=== PATIENT | female | born 1950 | race Caucasian/White ===

== ENCOUNTER 2018-10-05 23:32 | Inpatient (IN) ==
[2018-10-06] MEDS ORDERED: Naloxone 0.4 MG/ML INJ IVP PRN (01:34)
[2018-10-06] MEDS ORDERED: 0.9 % Sodium Chloride 1,000 ML IVC SCH (01:45)
[2018-10-06] MEDS ORDERED: OXYCODONE Oral CONC 10 MG/0.5 ML ORAL.SYG SL ONE (03:38)
[2018-10-06] MEDS: Nystatin POWDER 30 GM BOTTLE TP SCH ×4 (05:54→20:17)
[2018-10-06 07:22] LABS: Basophils % 0.4 %; Eosinophils # 0.2 K/mcL (0.0-0.6); Eosinophils % 2.6 %; Hematocrit 40.6 % (35.3-44.9); Hemoglobin 13.7 g/dL (11.5-15.4); Immature Granulocytes % 0.6 % (0-4); Lymphocytes # 2.4 K/mcL (0.6-4.6); Lymphocytes % 30.4 %; Mean Corpuscular HGB Conc 33.7 g/dL (31.6-35.5); Mean Corpuscular Hemoglobin 30.7 pg (28.0-33.3); Mean Platelet Volume 9.6 fL (9.4-12.4); Monocytes # 0.5 K/mcL (0.0-1.3); Monocytes % 6.6 %; Neutrophils # 4.8 K/mcL (1.6-8.9); Platelet Count 190 K/mcL (140-400); Red Blood Count 4.46 M/mcL (3.82-4.97); Red Cell Distribution Width 13.6 % (11.5-14.5); Segmented Neutrophils % 59.4 %
[2018-10-06 07:41] LABS: Albumin 3.8 g/dL (3.5-5.7); Albumin/Globulin Ratio 1.5 (1.1-2.2); Bilirubin,Total 0.6 mg/dL (0.3-1.0); Globulin 2.5 g/dL (2.4-3.5); Magnesium 1.7 mg/dL (1.6-2.6); Total Protein 6.3 g/dL (6.4-8.9)
--- NOTE | 2018-10-06 08:25 | Internal Med History&Physical ---
Date of Encounter: 10/06/18 Time of Encounter: 06:00 Internal Medicine - H&P: HPI Chief complaint: Right tibial plateau fracture History of present illness: Ms. Live is a 68 year old female with past medical history of COPD, GERD, hypertension, hyperlipidemia, renal disease and multiple sclerosis who presented to [facility] after a mechanical fall. Patient was attempting to get out of her walker seated device to answer the doorbell rang when she apparently got her feet tangled and fell forward striking her right knee. Since then she has been unable to bear weight. CT scan of the right knee performed at [place] showed acute insufficiency fracture of the posterior lateral tibial plateau with some impaction of the most posterior aspect of the tibial plateau measuring 3 mm. Case was discussed with Dr. Villareal we will see the patient after transfer. On my assessment patient was hemodynamically stable. She was complaining of right knee pain and requesting pain medication. Labs are notable for a mild elevation in creatinine which appears to be chronic. Past Med Surg Social Fam HX - Past Medical History Medical history: COPD, GERD, hyperlipidemia, hypertension, osteoporosis, renal disease, thyroid disease, other Additional medical history: MS Psychiatric history: anxiety, depression - Past Surgical History Surgical History: hysterectomy, other Additional surgical history: throat surgery, lumpectomy on R Breast - Social History Smoking Status: Former smoker Smokeless Tobacco Status: No Alcohol use: none Drug use: none - Family History Mother Hx Family Cancer: Yes (- Breast CA) Father Hx Family Cancer: Yes (Skin CA) Internal Medicine - H&P: Meds Amlodipine [Norvasc] 5 mg PO BID 04/23/15 [History] Aspirin 81 mg PO DAILY 04/23/15 [History] Buspirone [Buspar] 15 mg PO TID 04/23/15 [History] Cholecalciferol (Vitamin D3) [Vitamin D3] 1,000 unit PO DAILY 04/23/15 [History] CloNIDine HCl 0.1 mg PO TID 04/23/15 [History] Cyanocobalamin (B-12) [Vitamin B12] 1,000 mcg IM PRN PRN 04/23/15 [History] Ezetimibe [Zetia] 10 mg PO DAILY 04/23/15 [History] LORazepam [Ativan] 0.5 mg PO TID 04/23/15 [History] Loratadine [Claritin] 10 mg PO DAILY 04/23/15 [History] Metoprolol [Lopressor] 50 mg PO BID 04/23/15 [History] Nitroglycerin 0.4 mg SL Q5MIN 04/23/15 [History] Omeprazole [PriLOSEC] 20 mg PO DAILY 04/23/15 [History] Simvastatin [Zocor] 0.5 tab PO HS 04/23/15 [History] Albuterol Sulfate [Proair Hfa] 2 puff IH Q4H PRN 07/20/18 [History] Levothyroxine [Synthroid] 50 mcg PO 0630 07/20/18 [History] Acetaminophen [Tylenol] 650 mg PO Q6HR PRN tablet 07/23/18 [Rx] Lisinopril [Zestril] 2.5 mg PO DAILY 07/23/18 [History] [place]-3/Dha/Epa/Fish Oil [Fish Oil 1,000 mg Softgel] 1 each PO BID 07/23/18 [History] Allergy/AdvReac Type Severity Reaction Status Date / Time Benzoate Analogues Allergy See Verified 10/05/18 21:38 Comments chondroitin sulfate A Allergy See Verified 10/05/18 21:38 [From TripleFlex] Comments Diphenoxylate Allergy See Verified 10/05/18 21:38 Comments glatiramer (copolymer 1) Allergy See Verified 10/05/18 21:38 [From Copaxone] Comments glucosamine [From TripleFlex] Allergy See Verified 10/05/18 21:38 Comments levofloxacin Allergy See Verified 10/05/18 21:38 Comments methylsulfonylmethane Allergy See Verified 10/05/18 21:38 [From TripleFlex] Comments metronidazole Allergy See Verified 10/05/18 21:38 Comments nitrofurantoin Allergy See Verified 10/05/18 21:38 Comments ondansetron Allergy See Verified 10/05/18 21:38 Comments paricalcitol [From [place]] Allergy See Verified 10/05/18 21:38 Comments Sulfa (Sulfonamide Allergy Nausea Verified 10/05/18 21:38 Antibiotics) trazodone Allergy See Verified 10/05/18 21:38 Comments acetaminophen [From [place]] AdvReac Vomiting Verified 10/05/18 23:13 cinacalcet [From [place]] AdvReac See Verified 10/05/18 21:38 Comments codeine AdvReac Nausea Verified 10/05/18 21:38 hydrocodone [From [place]] AdvReac Vomiting Verified 10/05/18 23:13 NSAIDS (Non-Steroidal AdvReac Gastrointestinal Verified 10/05/18 21:38 Anti-Inflamma Upset All Systems PM: A 10-system review of systems was performed and is negative for pertinent findings except as documented above in the HPI. - Constitutional Constitutional: no chills, no fever(s), no night sweats - EENT Eyes: no change in vision, no discharge, no pain, no photophobia Ears: no ear discharge, no ear pain, no tinnitus Nose, mouth and throat: no dysphagia, no nasal discharge, no neck pain, no sore throat - Cardiovascular Cardiovascular ROS IM: no chest pain, no diaphoresis, no dyspnea, no lightheadedness, no palpitations, no syncope - Respiratory Respiratory: no cough, no dyspnea, no wheezing, no excessive phlegm production - Gastrointestinal Gastrointestinal: no abdominal pain, no diarrhea, no hematemesis, no hematochezia, no melena, no nausea, no vomiting - Genitourinary Genitourinary: no change in urinary stream, no dysuria, no flank pain, no hematuria - Musculoskeletal Musculoskeletal ROS IM: no numbness, no tingling - Integumentary Integumentary IM: no rash, no unusual bruising - Neurological Neurological ROS: no confusion, no convulsions, no focal weakness, no numbness, no tingling, no tremor(s) - Hematologic/Lymphatic Hematologic/Lymphatic: no easy bruising - Constitutional Vitals: Temp Pulse Resp BP Pulse Ox 97.6 F 92 14 151/91 95 10/06/18 08:12 10/06/18 08:12 10/06/18 08:12 10/06/18 08:12 10/06/18 08:12 Exam: General: Alert and oriented 3 Skin:Normal color, no rash, no lesions. HEENT:EOM, pupils equal, round and reactive. Cardiovascular:Normal S1 & S2, no rubs, murmurs or gallops. No JVD. Pulse regular. Lungs:Normal breath sounds, no wheezes or crackles. Abdomen:Soft, non-tender, no rigidity. Extremities:No deformity, no edema or tenderness, right knee tender to palpation below the patella. Pulses intact Neurological:Normal cognition and motor skills. Pulses:Carotid and radial pulses normal +2. Rest of the physical exam is non contributory Internal Med - H&P Results - Labs CBC & Chem 7: 10/06/18 06:26 10/06/18 06:26 Labs: Short CBC 10/06/18 Range/Units 06:26 WBC 8.0 (4.3-11.1) K/mcL Hgb 13.7 (11.5-15.4) g/dL Hct 40.6 (35.3-44.9) % Plt Count 190 (140-400) K/mcL Neutrophils # 4.8 (1.6-8.9) K/mcL BMP 10/06/18 06:26 Sodium 132 L Potassium 4.0 Chloride 99 Carbon Dioxide 24 BUN 21 Creatinine 1.32 H Glucose 274 H Calcium 10.0 Liver Function 10/06/18 Range/Units 06:26 Total Bilirubin 0.6 (0.3-1.0) mg/dL AST 17 (13-39) Units/L ALT 22 (7-52) Units/L Alkaline Phosphatase 110 H (34-104) Units/L Albumin 3.8 (3.5-5.7) g/dL - Assessment and plan (1) Tibial plateau fracture Current Visit: No Status: Acute Assessment and plan: Right tibial plateau fracture status post mechanical fall. Case was discussed with Dr. VILLAREAL this morning. He reports that he may perform the operation tomorrow but will discuss it with the day team and give them his final answer. Patient reports a history of coronary artery disease in addition to COPD but denies any chest pain at this time or respiratory difficulty. She appears to be sedentary ambulating with her walker due to history of frequent falls which she states is a result of her MS. -Patient will need preoperative clearance Qualifiers: Encounter type: initial encounter Qualified Code(s): S82.141A - Displaced bicondylar fracture of right tibia, initial encounter for closed fracture (2) Coronary artery disease Current Visit: Yes Status: Acute Assessment and plan: History of coronary artery disease. Currently stable -Continue medical management with home medications Qualifiers: Associated angina: angina presence unspecified Qualified Code(s): I25.10 - Atherosclerotic heart disease of [place] coronary artery without angina pectoris (3) COPD (chronic obstructive pulmonary disease) Current Visit: Yes Status: Acute Assessment and plan: Stable. No evidence of an acute exacerbation. -Continue home inhalers Qualifiers: Emphysema type: unspecified Qualified Code(s): J43.9 - Emphysema, unspecified (4) Hyponatremia Current Visit: No Status: Acute Assessment and plan: Mild hyponatremia of 132. - Continue gentle hydration with normal saline (5) DVT prophylaxis Current Visit: Yes Status: Acute Assessment and plan: Pneumatic compression devices - Time Spent With Patient Total time spent is greater than 50% in coordination of care (as documented) at patient's floor/unit and/or counseling patient:
[2018-10-06] MEDS ORDERED: Acetaminophen 325 MG TABLET PO PRN (08:35)
[2018-10-06] MEDS ORDERED: NON-FORMULARY MEDICATION 1 EACH EACH (Cyanocobalamin (B-12) 1,000 MCG) IM PRN (08:35)
[2018-10-06] MEDS: Nitroglycerin 0.4 MG TAB.SUBL SL SCH (10:15)
[2018-10-06] MEDS: Cholecalciferol (D-3) 1,000 UNIT TABLET PO SCH (10:21)
[2018-10-06] MEDS: *HR* LORazepam 0.5 MG TABLET PO SCH ×3 (10:21→20:16)
[2018-10-06] MEDS: Loratadine 10 MG TABLET PO SCH (10:21)
[2018-10-06] MEDS: Aspirin 81 MG TAB.CHEW PO SCH (10:21)
[2018-10-06] MEDS: cloNIDine HCl 0.1 MG TABLET PO SCH ×3 (10:22→20:17)
[2018-10-06] MEDS: OXYCODONE Oral CONC 10 MG/0.5 ML ORAL.SYG SL PRN ×2 (10:22→20:42)
[2018-10-06] MEDS: amLODIPine 5 MG TABLET PO SCH ×2 (10:22→20:16)
[2018-10-06] MEDS: (Ezetimibe [Zetia] 10 MG) PO SCH (10:35)
[2018-10-06] MEDS: (Omega-3/Dha/Epa/Fish Oil [Fish Oil 1,000 Mg Softgel]) PO SCH ×2 (10:35→20:17)
--- NOTE | 2018-10-06 10:56 | Event Note ---
Date of Encounter: 10/06/18 Time of Encounter: 10:56
--- NOTE | 2018-10-06 15:12 | Orthopedic Consult Note ---
Date of Encounter: 10/06/18 Time of Encounter: 15:05 History of Present Illness Chief complaint: Right knee pain HPI: Ms. Live is a 68 year old female with multiple medical problems who sustained a mechanical fall at home and injured her right knee. She was unable to weight- bear on the extremity. She was seen a [facility] where a knee x-ray followed by CT scan revealed evidence of a lateral tibial plateau fracture. The patient was unable to ambulate and was therefore transferred to [facility] for further evaluation and management of the injury. Patient denies any neurovascular complaints. Patient has had some episodes of pain in the past. I reviewed the patient's completed history and physical examination as well as the completed medical record. The patient's medical history is very significant for COPD, GERD, hyperlipidemia, hypertension, osteoporosis, chronic kidney disease, thyroid disease as well as multiple sclerosis. Orthopedic examination reveals an obese white female (BMI 43.2) in minor distress while lying in the hospital bed. Examination of the right lower extremity shows no acute ecchymosis. There is minimal edema or swelling about the knee. Tenderness is palpated along the lateral joint line as well as the medial joint line. No patellofemoral pain is noted. Distal neurosensory exam is intact. Motion is extremely limited. X-rays of the knee are nonweightbearing and do reveal some narrowing of the medial joint line. Diminished bone density is noted. There is a depressed posterolateral tibial plateau fracture. No evidence of distal involvement. Medial side appears unremarkable. CT scan was reviewed. This reveals a impacted posterolateral tibial plateau fracture with impaction difference of about 3 mm. This is a unicondylar fracture. Impression: Right lateral tibial plateau fracture, minimal displacement. Recommendation: In light of the minimal displacement as well as multiple other secondary factors including obesity, diminished bone density, COPD and multiple sclerosis I recommend nonoperative management of this fracture. The patient understands that whether the fractures treated surgically or not operative, she will not be weightbearing on the extremity for some period of time and that posttraumatic arthritis is and anticipated ultimate outcome regardless of treatment. I discussed that surgery would be designed to attempt to elevate the depressed fragment and then stabilize it. I do not think there is a significant amount to gain in light of the risks of potential surgery in this particular patient and with this fracture. Patient understands and agrees with care as outlined. We will consult physical and occupational therapy and manager social work for discharge planning. Thank you for allowing me to see and care for Ms. Live. Sincerely, Morgan Garcia,DO Past Med Surg Social Fam HX - Past Medical History Medical history: COPD, GERD, hyperlipidemia, hypertension, osteoporosis, renal disease, thyroid disease, other Additional medical history: MS Psychiatric history: anxiety, depression - Past Surgical History Surgical History: hysterectomy, other Additional surgical history: throat surgery, lumpectomy on R Breast - Social History Smoking Status: Former smoker Smokeless Tobacco Status: No Alcohol use: none Drug use: none - Family History Mother Hx Family Cancer: Yes (- Breast CA) Father Hx Family Cancer: Yes (Skin CA) Medications and Allergies Amlodipine [Norvasc] 5 mg PO BID 04/23/15 [History] Aspirin 81 mg PO DAILY 04/23/15 [History] Buspirone [Buspar] 15 mg PO TID 04/23/15 [History] Cholecalciferol (Vitamin D3) [Vitamin D3] 1,000 unit PO DAILY 04/23/15 [History] CloNIDine HCl 0.1 mg PO TID 04/23/15 [History] Cyanocobalamin (B-12) [Vitamin B12] 1,000 mcg IM PRN PRN 04/23/15 [History] Ezetimibe [Zetia] 10 mg PO DAILY 04/23/15 [History] LORazepam [Ativan] 0.5 mg PO TID 04/23/15 [History] Loratadine [Claritin] 10 mg PO DAILY 04/23/15 [History] Metoprolol [Lopressor] 50 mg PO BID 04/23/15 [History] Nitroglycerin 0.4 mg SL Q5MIN 04/23/15 [History] Omeprazole [PriLOSEC] 20 mg PO DAILY 04/23/15 [History] Simvastatin [Zocor] 0.5 tab PO HS 04/23/15 [History] Albuterol Sulfate [Proair Hfa] 2 puff IH Q4H PRN 07/20/18 [History] Levothyroxine [Synthroid] 50 mcg PO 0630 07/20/18 [History] Acetaminophen [Tylenol] 650 mg PO Q6HR PRN tablet 07/23/18 [Rx] Lisinopril [Zestril] 2.5 mg PO DAILY 07/23/18 [History] [place]-3/Dha/Epa/Fish Oil [Fish Oil 1,000 mg Softgel] 1 each PO BID 07/23/18 [History] Allergy/AdvReac Type Severity Reaction Status Date / Time Benzoate Analogues Allergy See Verified 10/05/18 21:38 Comments chondroitin sulfate A Allergy See Verified 10/05/18 21:38 [From TripleFlex] Comments Diphenoxylate Allergy See Verified 10/05/18 21:38 Comments glatiramer (copolymer 1) Allergy See Verified 10/05/18 21:38 [From Copaxone] Comments glucosamine [From TripleFlex] Allergy See Verified 10/05/18 21:38 Comments levofloxacin Allergy See Verified 10/05/18 21:38 Comments methylsulfonylmethane Allergy See Verified 10/05/18 21:38 [From TripleFlex] Comments metronidazole Allergy See Verified 10/05/18 21:38 Comments nitrofurantoin Allergy See Verified 10/05/18 21:38 Comments ondansetron Allergy See Verified 10/05/18 21:38 Comments paricalcitol [From Zemplar] Allergy See Verified 10/05/18 21:38 Comments Sulfa (Sulfonamide Allergy Nausea Verified 10/05/18 21:38 Antibiotics) trazodone Allergy See Verified 10/05/18 21:38 Comments acetaminophen [From [place]] AdvReac Vomiting Verified 10/05/18 23:13 cinacalcet [From Sensipar] AdvReac See Verified 10/05/18 21:38 Comments codeine AdvReac Nausea Verified 10/05/18 21:38 hydrocodone [From [place]] AdvReac Vomiting Verified 10/05/18 23:13 NSAIDS (Non-Steroidal AdvReac Gastrointestinal Verified 10/05/18 21:38 Anti-Inflamma Upset All Systems Reviewed: The remainder of the systems were reviewed and are negative Physical Exam - Constitutional Vitals: Temp Pulse Resp BP Pulse Ox 97.6 F 119 14 151/83 93 10/06/18 11:04 10/06/18 11:04 10/06/18 11:04 10/06/18 11:04 10/06/18 11:04 Results - Labs Result Diagrams: 10/06/18 06:26 10/06/18 06:26 Labs: Abnormal lab results Sodium 132 mEq/L (136-145) L 10/06/18 06:26 Creatinine 1.32 mg/dL (0.60-1.20) H 10/06/18 06:26 Est GFR ( Amer) 48 (> 60) L 10/06/18 06:26 Est GFR (Non-Af Amer) 40 (> 60) L 10/06/18 06:26 Glucose 274 mg/dL (70-105) H 10/06/18 06:26 Alkaline Phosphatase 110 Units/L (34-104) H 10/06/18 06:26 Serum Total Protein 6.3 g/dL (6.4-8.9) L 10/06/18 06:26 H & H 10/06/18 Range/Units 06:26 Hgb 13.7 (11.5-15.4) g/dL Hct 40.6 (35.3-44.9) % All other labs normal. - Diagnostic results Knee x-ray: image reviewed Knee CT: image reviewed Consult Discharge Plan - Plan Referrals: NONE,PCP [Primary Care Provider] -
[2018-10-07] MEDS: OXYCODONE Oral CONC 10 MG/0.5 ML ORAL.SYG SL PRN ×3 (05:13→22:28)
[2018-10-07] MEDS: Loratadine 10 MG TABLET PO SCH (08:59)
[2018-10-07] MEDS: *HR* LORazepam 0.5 MG TABLET PO SCH ×3 (08:59→20:52)
[2018-10-07] MEDS: amLODIPine 5 MG TABLET PO SCH ×2 (09:00→20:52)
[2018-10-07] MEDS: Cholecalciferol (D-3) 1,000 UNIT TABLET PO SCH (09:00)
[2018-10-07] MEDS: Aspirin 81 MG TAB.CHEW PO SCH (09:00)
[2018-10-07] MEDS: cloNIDine HCl 0.1 MG TABLET PO SCH ×3 (09:00→20:52)
[2018-10-07] MEDS: (Ezetimibe [Zetia] 10 MG) PO SCH (09:01)
[2018-10-07] MEDS: Nystatin POWDER 30 GM BOTTLE TP SCH ×3 (09:08→20:57)
[2018-10-07] MEDS: Nitroglycerin 0.4 MG TAB.SUBL SL SCH (11:49)
[2018-10-07] MEDS: (Omega-3/Dha/Epa/Fish Oil [Fish Oil 1,000 Mg Softgel]) PO SCH ×2 (11:49→20:52)
--- NOTE | 2018-10-08 00:11 | Internal Med Progress Note ---
Hospitalist Progress Note - Encounter Date of Encounter: 10/07/18 Time of Encounter: 12:09 - Subjective Interval History: No complaints, no acute events. - Exam Vitals: Temp Pulse Resp BP Pulse Ox 97.6 F 72 18 104/66 93 10/07/18 23:13 10/07/18 23:13 10/07/18 23:13 10/07/18 23:13 10/07/18 23:13 Exam: General: Alert and oriented 3, very anxious appearing Skin:Normal color, no rash, no lesions. HEENT:EOM, pupils equal, round and reactive. Cardiovascular:Normal S1 & S2, no rubs, murmurs or gallops. No JVD. Pulse regular. Lungs:Normal breath sounds, no wheezes or crackles. Abdomen:Soft, non-tender, no rigidity. Extremities:No deformity, no edema or tenderness, right knee tender to palpation below the patella. Pulses intact Neurological:Normal cognition and motor skills. Pulses:Carotid and radial pulses normal +2. - Assessment and Plan (1) Tibial plateau fracture Current Visit: No Status: Acute Assessment and Plan: Right tibial plateau fracture status post mechanical fall. Case was discussed with Dr. VILLAREAL this morning. He reports that he may perform the operation tomorrow but will discuss it with the day team and give them his final answer. Patient reports a history of coronary artery disease in addition to COPD but denies any chest pain at this time or respiratory difficulty. She appears to be sedentary ambulating with her walker due to history of frequent falls which she states is a result of her MS. 2/3/: Ortho farrah: non-operative. Await PT/OT recs. (2) Hyponatremia Current Visit: No Status: Acute Assessment and Plan: Mild hyponatremia of 132. Pt was given gentle hydration with normal saline. (3) Coronary artery disease Current Visit: Yes Status: Acute (4) COPD (chronic obstructive pulmonary disease) Current Visit: Yes Status: Acute (5) DVT prophylaxis Current Visit: Yes Status: Acute - Time Spent with Patient Total time spent is greater than 50% in coordination of care (as documented) at patient's floor/unit and/or counseling patient: Internal Medicine: Result - Labs CBC & Chem 7: 10/06/18 06:26 10/06/18 06:26 Consult Discharge Plan - Plan Referrals: NONE,PCP [Primary Care Provider] - (1) Tibial plateau fracture Qualifiers: Encounter type: initial encounter Qualified Code(s): S82.141A - Displaced bicondylar fracture of right tibia, initial encounter for closed fracture (3) Coronary artery disease Qualifiers: Associated angina: angina presence unspecified Qualified Code(s): I25.10 - Atherosclerotic heart disease of [place] coronary artery without angina pectoris (4) COPD (chronic obstructive pulmonary disease) Qualifiers: Emphysema type: unspecified Qualified Code(s): J43.9 - Emphysema, unspecified
--- NOTE | 2018-10-08 00:14 | Internal Med Progress Note ---
Hospitalist Progress Note - Encounter Date of Encounter: 10/07/18 Time of Encounter: 13:21 - Subjective Interval History: No complaints, no acute events. Pt very anxious about health conditions. - Exam Vitals: Temp Pulse Resp BP Pulse Ox 97.6 F 72 18 104/66 93 10/07/18 23:13 10/07/18 23:13 10/07/18 23:13 10/07/18 23:13 10/07/18 23:13 Exam: General: Alert and oriented 3, very anxious appearing Skin:Normal color, no rash, no lesions. HEENT:EOM, pupils equal, round and reactive. Cardiovascular:Normal S1 & S2, no rubs, murmurs or gallops. No JVD. Pulse regula r. Lungs:Normal breath sounds, no wheezes or crackles. Abdomen:Soft, non-tender, no rigidity. Extremities:No deformity, no edema or tenderness, right knee tender to palpation below the patella. Pulses intact Neurological:Normal cognition and motor skills. Pulses:Carotid and radial pulses normal +2. - Assessment and Plan (1) Tibial plateau fracture Current Visit: No Status: Acute Assessment and Plan: Right tibial plateau fracture status post mechanical fall. Case was discussed with Dr. VILLAREAL this morning. He reports that he may perform the operation tomorrow but will discuss it with the day team and give them his final answer. Patient reports a history of coronary artery disease in addition to COPD but denies any chest pain at this time or respiratory difficulty. She appears to be sedentary ambulating with her walker due to history of frequent falls which she states is a result of her MS. 2/3/: Ortho farrah: non-operative. Await PT/OT recs. (2) Hyponatremia Current Visit: No Status: Acute (3) Coronary artery disease Current Visit: Yes Status: Acute (4) COPD (chronic obstructive pulmonary disease) Current Visit: Yes Status: Acute (5) DVT prophylaxis Current Visit: Yes Status: Acute - Time Spent with Patient Total time spent is greater than 50% in coordination of care (as documented) at patient's floor/unit and/or counseling patient: Internal Medicine: Result - Labs CBC & Chem 7: 10/06/18 06:26 10/06/18 06:26 Consult Discharge Plan - Plan Referrals: NONE,PCP [Primary Care Provider] - (1) Tibial plateau fracture Qualifiers: Encounter type: initial encounter Qualified Code(s): S82.141A - Displaced bicondylar fracture of right tibia, initial encounter for closed fracture (3) Coronary artery disease Qualifiers: Associated angina: angina presence unspecified Qualified Code(s): I25.10 - Atherosclerotic heart disease of [place] coronary artery without angina pectoris (4) COPD (chronic obstructive pulmonary disease) Qualifiers: Emphysema type: unspecified Qualified Code(s): J43.9 - Emphysema, unspecified
[2018-10-08 06:30] LABS: Calcium 9.3 mg/dL (8.6-10.3); Potassium 4.3 mEq/L (3.5-5.1)
[2018-10-08] MEDS: 0.9 % Sodium Chloride 1,000 ML IVC SCH ×2 (06:59→15:29)
[2018-10-08] MEDS: Loratadine 10 MG TABLET PO SCH (08:09)
[2018-10-08] MEDS: Cholecalciferol (D-3) 1,000 UNIT TABLET PO SCH (08:09)
[2018-10-08] MEDS: *HR* LORazepam 0.5 MG TABLET PO SCH ×3 (08:09→20:33)
[2018-10-08] MEDS: Aspirin 81 MG TAB.CHEW PO SCH (08:09)
[2018-10-08] MEDS: Nystatin POWDER 30 GM BOTTLE TP SCH ×3 (08:10→20:34)
[2018-10-08] MEDS: cloNIDine HCl 0.1 MG TABLET PO SCH ×3 (08:10→20:31)
[2018-10-08] MEDS: amLODIPine 5 MG TABLET PO SCH ×2 (08:10→20:33)
[2018-10-08] MEDS: (Ezetimibe [Zetia] 10 MG) PO SCH (08:10)
[2018-10-08] MEDS: Nitroglycerin 0.4 MG TAB.SUBL SL SCH (08:10)
[2018-10-08] MEDS: (Omega-3/Dha/Epa/Fish Oil [Fish Oil 1,000 Mg Softgel]) PO SCH ×2 (08:12→20:34)
[2018-10-08] MEDS: OXYCODONE Oral CONC 10 MG/0.5 ML ORAL.SYG SL PRN ×2 (08:24→13:13)
--- NOTE | 2018-10-08 14:01 | Internal Med Progress Note ---
Hospitalist Progress Note - Encounter Date of Encounter: 10/08/18 Time of Encounter: 11:15 - Subjective Interval History: Patient was sleeping comfortably at the time of my examination. She denies any new problems. Complains of pain when she attempts movement of her right lower extremity has a scale of 6/10. She says the pain at that point is very sharp and radiates down her toes. Not associated with any other tingling or numbness. Rest makes it feel better - Exam Vitals: Temp Pulse Resp BP Pulse Ox 98.3 F 87 16 104/63 96 10/08/18 09:47 10/08/18 09:47 10/08/18 09:47 10/08/18 09:47 10/08/18 09:47 Exam: General: Alert , sleeping comfortably but arousable, uncomfortable and moving her extremity Skin:Normal color, no rash, no lesions. HEENT:EOM, pupils equal, round and reactive. Cardiovascular:Normal S1 & S2, no rubs, murmurs or gallops. No JVD. Pulse regular. Lungs:Normal breath sounds, no wheezes or crackles. Abdomen:Soft, non-tender, no rigidity. Extremities: Right knee tender to palpation. Brace in place. Neurological:Normal cognition and motor skills. Pulses:Carotid and radial pulses normal +2. - Assessment and Plan (1) Acute renal failure Current Visit: Yes Status: Acute Assessment and Plan: It looks like the patient has some chronic kidney disease at the baseline is at least stage III and is now worse. Her creatinine is the worst it has ever been at 2.14. Her baseline was reported as 1.08 in July 2018 although more accurately it is been around 1.3-1.4 when I trended backwards. Regardless I feel this situation merits IV fluids and following BMP closely. Should there be no resolution in her creatinine by tomorrow then we will consider nephrology input. (2) Tibial plateau fracture Current Visit: No Status: Acute Assessment and Plan: Right tibial plateau fracture-appreciate orthopedic surgery input. Nonoperative intervention at this point. Brace in place. Physical therapy has seen the patient and [facility]. She is to be nonweightbearing on the extremity for some period of time. (3) Hyponatremia Current Visit: No Status: Acute Assessment and Plan: Sodium today is 124. IV fluids have been started normal saline. I will continue it for a total of 2 packs because she also has evidence of acute renal failure. Hopefully this correct her hyponatremia and we will recheck BMP tomorrow If hyponatremia continues to get worse, we may need to consider nephrology consult. (4) Coronary artery disease Current Visit: Yes Status: Acute Assessment and Plan: History of coronary artery disease. Currently stable -Continue medical management with home medications (5) COPD (chronic obstructive pulmonary disease) Current Visit: Yes Status: Acute Assessment and Plan: Stable. No evidence of an acute exacerbation. -Continue home inhalers (6) DVT prophylaxis Current Visit: Yes Status: Acute - Time Spent with Patient Total time spent is greater than 50% in coordination of care (as documented) at patient's floor/unit and/or counseling patient: Greater than 35 minutes Plan of Care Discussed with: case management (45 minutes total spent with more than 50% [id number] counseling) Internal Medicine: Result - Labs CBC & Chem 7: 10/06/18 06:26 10/08/18 05:50 Labs: BMP 10/08/18 05:50 Sodium 124 L Potassium 4.3 Chloride 94 L Carbon Dioxide 20 L BUN 35 H Creatinine 2.14 H Glucose 179 H Calcium 9.3 Consult Discharge Plan - Plan Referrals: NONE,PCP [Primary Care Provider] - (2) Tibial plateau fracture Qualifiers: Encounter type: initial encounter Qualified Code(s): S82.141A - Displaced bi condylar fracture of right tibia, initial encounter for closed fracture (4) Coronary artery disease Qualifiers: Associated angina: angina presence unspecified Qualified Code(s): I25.10 - Atherosclerotic heart disease of [place] coronary artery without angina pectoris (5) COPD (chronic obstructive pulmonary disease) Qualifiers: Emphysema type: unspecified Qualified Code(s): J43.9 - Emphysema, unspecified
[2018-10-09] MEDS ORDERED: Aspirin 81 MG TAB.CHEW PO ONE (01:33)
[2018-10-09] MEDS: OXYCODONE Oral CONC 10 MG/0.5 ML ORAL.SYG SL PRN ×3 (04:36→20:20)
[2018-10-09 05:36] LABS: Albumin 3.2 g/dL (3.5-5.7); Albumin/Globulin Ratio 1.3 (1.1-2.2); Bilirubin,Total 0.6 mg/dL (0.3-1.0); Calcium 9.2 mg/dL (8.6-10.3); Globulin 2.4 g/dL (2.4-3.5); Potassium 4.3 mEq/L (3.5-5.1); Total Protein 5.6 g/dL (6.4-8.9)
[2018-10-09] MEDS: Loratadine 10 MG TABLET PO SCH (09:31)
[2018-10-09] MEDS: *HR* LORazepam 0.5 MG TABLET PO SCH ×3 (09:31→20:15)
[2018-10-09] MEDS: amLODIPine 5 MG TABLET PO SCH ×2 (09:32→20:17)
[2018-10-09] MEDS: Aspirin 81 MG TAB.CHEW PO SCH (09:32)
[2018-10-09] MEDS: Cholecalciferol (D-3) 1,000 UNIT TABLET PO SCH (09:32)
[2018-10-09] MEDS: cloNIDine HCl 0.1 MG TABLET PO SCH ×3 (09:32→20:17)
[2018-10-09] MEDS: Nitroglycerin 0.4 MG TAB.SUBL SL SCH (09:33)
[2018-10-09] MEDS: (Omega-3/Dha/Epa/Fish Oil [Fish Oil 1,000 Mg Softgel]) PO SCH ×2 (09:33→20:16)
[2018-10-09] MEDS: Nystatin POWDER 30 GM BOTTLE TP SCH ×3 (09:36→20:15)
--- NOTE | 2018-10-09 13:41 | Internal Med Progress Note ---
Hospitalist Progress Note - Encounter Date of Encounter: 10/09/18 Time of Encounter: 11:00 - Subjective Interval History: Patient has been doing well. Sitting upright in the chair and states that her pain is better. She looks much more awake and alert as compared to yesterday. - Exam Vitals: Temp Pulse Resp BP Pulse Ox 97.3 F L 93 18 121/81 95 10/09/18 10:43 10/09/18 10:43 10/09/18 10:43 10/09/18 10:43 10/09/18 10:43 Exam: General: Alert , alert and oriented 3 Skin:Normal color, no rash, no lesions. HEENT:EOM, pupils equal, round and reactive. Cardiovascular:Normal S1 & S2, no rubs, murmurs or gallops. No JVD. Pulse regular. Lungs:Normal breath sounds, no wheezes or crackles. Abdomen:Soft, non-tender, no rigidity. Extremities: Right knee tender to palpation. Brace in place. Neurological:Normal cognition and motor skills. Pulses:Carotid and radial pulses normal +2. - Assessment and Plan (1) Acute renal failure Current Visit: Yes Status: Acute Assessment and Plan: Creatinine is significantly better today at 1.47 from greater than 2 yesterday. She appears to have responded to IV fluid challenge did have baseline is roughly1.3 but I am hesitant on adding more IV fluids at this point. I will continue to monitor closely and check BMP tomorrow morning (2) Tibial plateau fracture Current Visit: No Status: Acute Assessment and Plan: Right tibial plateau fracture-appreciate orthopedic surgery input. Nonoperative intervention at this point. Brace in place. Physical therapy has seen the patient and recommended long-term facility. She is to be nonweightbearing on the extremity for some period of time. (3) Hyponatremia Current Visit: No Status: Acute Assessment and Plan: Hyponatremia seems to be slowly resolving. Today 128. Will repeat BmP tomorrow morning (4) Coronary artery disease Current Visit: Yes Status: Acute Assessment and Plan: History of coronary artery disease. Currently stable -Continue medical management with home medications (5) COPD (chronic obstructive pulmonary disease) Current Visit: Yes Status: Acute Assessment and Plan: Stable. No evidence of an acute exacerbation. -Continue home inhalers (6) DVT prophylaxis Current Visit: Yes Status: Acute Assessment and Plan: Pneumatic compression devices - Time Spent with Patient Total time spent is greater than 50% in coordination of care (as documented) at patient's floor/unit and/or counseling patient: 25 - 35 minutes Plan of Care Discussed with: patient Internal Medicine: Result - Labs CBC & Chem 7: 10/06/18 06:26 10/09/18 04:52 Labs: BMP 10/09/18 04:52 Sodium 128 L Potassium 4.3 Chloride 100 Carbon Dioxide 20 L BUN 28 H Creatinine 1.47 H Glucose 168 H Calcium 9.2 Liver Function 10/09/18 Range/Units 04:52 Total Bilirubin 0.6 (0.3-1.0) mg/dL AST 24 (13-39) Units/L ALT 52 (7-52) Units/L Alkaline Phosphatase 149 H (34-104) Units/L Albumin 3.2 L (3.5-5.7) g/dL Consult Discharge Plan - Plan Referrals: NONE,PCP [Primary Care Provider] - (2) Tibial plateau fracture Qualifiers: Encounter type: initial encounter Qualified Code(s): S82.141A - Displaced bicondylar fracture of right tibia, initial encounter for closed fracture (4) Coronary artery disease Qualifiers: Associated angina: angina presence unspecified Qualified Code(s): I25.10 - Atherosclerotic heart disease of [place] coronary artery without angina pectoris (5) COPD (chronic obstructive pulmonary disease) Qualifiers: Emphysema type: unspecified Qualified Code(s): J43.9 - Emphysema, unspecified
[2018-10-09] MEDS: Ezetimibe [Ezetimibe] 10 MG PO SCH (20:16)
--- NOTE | 2018-10-09 23:42 | Electrocardiograph Report ---
[address] [place], [place] [address] Test Date: 2018-10-09 Pat Name: Marissa Live Department: 114 Room: [facility] Gender: F Strong Nitric Operator: : 1950 Requested By: Ander Carney Order Number: [id number] Reading MD: Lucita Muse Measurements Intervals [place] Rate: 81 P: 27 NE: 205 QRS: 27 QRSD: 102 T: 22 QT: 332 QTc: 369 Interpretive Statements SINUS RHYTHM Electronically Signed On 10-09-2018 23:40:39 EST by Lucita Muse
[2018-10-10] MEDS: OXYCODONE Oral CONC 10 MG/0.5 ML ORAL.SYG SL PRN ×3 (03:51→20:02)
[2018-10-10 05:12] LABS: Albumin 3.3 g/dL (3.5-5.7); Albumin/Globulin Ratio 1.4 (1.1-2.2); Bilirubin,Total 0.4 mg/dL (0.3-1.0); Calcium 9.5 mg/dL (8.6-10.3); Globulin 2.3 g/dL (2.4-3.5); Potassium 4.7 mEq/L (3.5-5.1); Total Protein 5.6 g/dL (6.4-8.9)
[2018-10-10] MEDS: Cholecalciferol (D-3) 1,000 UNIT TABLET PO SCH (09:19)
[2018-10-10] MEDS: *HR* LORazepam 0.5 MG TABLET PO SCH ×3 (09:19→20:00)
[2018-10-10] MEDS: Aspirin 81 MG TAB.CHEW PO SCH (09:20)
[2018-10-10] MEDS: Loratadine 10 MG TABLET PO SCH (09:20)
[2018-10-10] MEDS: amLODIPine 5 MG TABLET PO SCH ×2 (09:20→20:00)
[2018-10-10] MEDS: cloNIDine HCl 0.1 MG TABLET PO SCH ×3 (09:20→20:00)
[2018-10-10] MEDS: Nystatin POWDER 30 GM BOTTLE TP SCH ×3 (09:21→20:02)
[2018-10-10] MEDS: Nitroglycerin 0.4 MG TAB.SUBL SL SCH (09:21)
[2018-10-10] MEDS: (Omega-3/Dha/Epa/Fish Oil [Fish Oil 1,000 Mg Softgel]) PO SCH ×2 (09:21→20:03)
--- NOTE | 2018-10-10 13:56 | Internal Med Progress Note ---
Hospitalist Progress Note - Encounter Date of Encounter: 10/10/18 Time of Encounter: 10:25 - Subjective Interval History: Doing well. Denies any new fevers or chills. Awaits placement - Exam Vitals: Temp Pulse Resp BP Pulse Ox 98.3 F 78 16 129/76 95 10/10/18 10:12 10/10/18 10:12 10/10/18 10:12 10/10/18 10:12 10/10/18 10:12 Exam: General: Alert , alert and oriented 3 Skin:Normal color, no rash, no lesions. HEENT:EOM, pupils equal, round and reactive. Cardiovascular:Normal S1 & S2, no rubs, murmurs or gallops. No JVD. Pulse regular. Lungs:Normal breath sounds, no wheezes or crackles. Abdomen:Soft, non-tender, no rigidity. Extremities: Right knee tender to palpation. Brace in place. Neurological:Normal cognition and motor skills. Pulses:Carotid and radial pulses normal +2. - Assessment and Plan (1) Acute renal failure Current Visit: Yes Status: Acute Assessment and Plan: Creatinine continues to improve significantly. Continue to watch without any further IV fluids. Check BMP tomorrow (2) Tibial plateau fracture Current Visit: No Status: Acute Assessment and Plan: Right tibial plateau fracture-appreciate orthopedic surgery input. Nonoperative intervention at this point. Brace in place. Physical therapy has seen the patient and recommended correction facility. She is to be nonweightbearing on the extremity for some period of time. (3) Hyponatremia Current Visit: No Status: Acute Assessment and Plan: Hyponatremia continues to resolve. Today 131. Continue to monitor with serial BMP (4) Coronary artery disease Current Visit: Yes Status: Acute Assessment and Plan: History of coronary artery disease. Currently stable -Continue medical management with home medications (5) COPD (chronic obstructive pulmonary disease) Current Visit: Yes Status: Acute Assessment and Plan: Stable. No evidence of an acute exacerbation. -Continue home inhalers (6) DVT prophylaxis Current Visit: Yes Status: Acute Assessment and Plan: Pneumatic compression devices - Time Spent with Patient Total time spent is greater than 50% in coordination of care (as documented) at patient's floor/unit and/or counseling patient: 25 - 35 minutes Plan of Care Discussed with: patient Internal Medicine: Result - Labs CBC & Chem 7: 10/06/18 06:26 10/10/18 04:35 Labs: BMP 10/10/18 04:35 Sodium 131 L Potassium 4.7 Chloride 102 Carbon Dioxide 21 L BUN 23 Creatinine 1.28 H Glucose 163 H Calcium 9.5 Liver Function 10/10/18 Range/Units 04:35 Total Bilirubin 0.4 (0.3-1.0) mg/dL AST 18 (13-39) Units/L ALT 37 (7-52) Units/L Alkaline Phosphatase 138 H (34-104) Units/L Albumin 3.3 L (3.5-5.7) g/dL Consult Discharge Plan - Plan Referrals: NONE,PCP [Primary Care Provider] - (2) Tibial plateau fracture Qualifiers: Encounter type: initial encounter Qualified Code(s): S82.141A - Displaced bicondylar fracture of right tibia, initial encounter for closed fracture (4) Coronary artery disease Qualifiers: Associated angina: angina presence unspecified Qualified Code(s): I25.10 - Atherosclerotic heart disease of [place] coronary artery without angina pectoris (5) COPD (chronic obstructive pulmonary disease) Qualifiers: Emphysema type: unspecified Qualified Code(s): J43.9 - Emphysema, unspecified
[2018-10-10] MEDS ORDERED: Nitroglycerin 0.4 MG TAB.SUBL SL PRN (18:11)
[2018-10-10] MEDS: Ezetimibe [Ezetimibe] 10 MG PO SCH (20:03)
[2018-10-11 06:32] LABS: Albumin 3.3 g/dL (3.5-5.7); Albumin/Globulin Ratio 1.4 (1.1-2.2); Bilirubin,Total 0.4 mg/dL (0.3-1.0); Calcium 9.4 mg/dL (8.6-10.3); Globulin 2.3 g/dL (2.4-3.5); Potassium 4.7 mEq/L (3.5-5.1); Total Protein 5.6 g/dL (6.4-8.9)
[2018-10-11] MEDS: Loratadine 10 MG TABLET PO SCH (08:59)
[2018-10-11] MEDS: Aspirin 81 MG TAB.CHEW PO SCH (08:59)
[2018-10-11] MEDS: Cholecalciferol (D-3) 1,000 UNIT TABLET PO SCH (08:59)
[2018-10-11] MEDS: cloNIDine HCl 0.1 MG TABLET PO SCH ×2 (09:00→13:59)
[2018-10-11] MEDS: *HR* LORazepam 0.5 MG TABLET PO SCH ×2 (09:00→13:59)
[2018-10-11] MEDS: amLODIPine 5 MG TABLET PO SCH (09:00)
[2018-10-11] MEDS: Nystatin POWDER 30 GM BOTTLE TP SCH (09:01)
[2018-10-11] MEDS: (Omega-3/Dha/Epa/Fish Oil [Fish Oil 1,000 Mg Softgel]) PO SCH (09:01)
[2018-10-11] MEDS: OXYCODONE Oral CONC 10 MG/0.5 ML ORAL.SYG SL PRN ×2 (09:12→13:59)
--- NOTE | 2018-10-11 10:29 | Discharge Summary ---
- NOTES TO OUTPATIENT PROVIDER Notes to Outpatient Provider: Follow-up with orthopedic surgery in 2 weeks' time. Follow with primary care physician in one week time Date of Encounter: 10/11/18 Time of Encounter: 10:23 - Discharge Diagnosis (1) Tibial plateau fracture Priority: Primary Status: Acute Qualifiers: Encounter type: initial encounter Qualified Code(s): S82.141A - Displaced bicondylar fracture of right tibia, initial encounter for closed fracture (2) Acute renal failure Priority: Secondary Status: Acute Qualifiers: Acute renal failure type: unspecified Qualified Code(s): N17.9 - Acute kidney failure, unspecified (3) Hyponatremia Priority: Secondary Status: Acute (4) Coronary artery disease Priority: Secondary Status: Acute Qualifiers: Associated angina: angina presence unspecified Qualified Code(s): I25.10 - Atherosclerotic heart disease of [place] coronary artery without angina pectoris (5) COPD (chronic obstructive pulmonary disease) Priority: Secondary Status: Acute Qualifiers: Emphysema type: unspecified Qualified Code(s): J43.9 - Emphysema, unspecified (6) DVT prophylaxis Priority: Secondary Status: Acute Hospital course: Ms. Live is a 68 year old female with a past medical history of COPD, multiple sclerosis who presented with a right tibial plateau fracture after a fall. The patient was seen by orthopedic surgery and deemed to be a high risk for proc edure. Nonoperative intervention was continued in the hospital with a brace which is in place. She remains nonweightbearing on the right lower extremity for at least 2-3 weeks till she is seen by orthopedic surgery as an outpatient. She was also evaluated for her deconditioning by physical therapy and patient therapy and recommended ECF which social work is working on placement. She did have hyponatremia and mild acute renal failure which improved with IV fluids while in the hospital. She continues to be on oxygen which she was on at home for her COPD. She is also advised to follow with her primary care physician in one to 2 weeks' time. Her renal function is now at baseline. Discharge discussed with: patient - Time Spent with Patient Total time spent providing and/or coordinating discharge services:50 min - Discharge Medications Prescriptions: Oxycodone HCl 5 mg PO Q6-8H PRN 3 Days #15 tablet PRN Reason: Fracture Home Medications: Aspirin 81 mg PO DAILY 04/23/15 [History] Cholecalciferol (Vitamin D3) [Vitamin D3] 1,000 unit PO DAILY 04/23/15 [History] LORazepam [Ativan] 1 mg PO DAILY 04/23/15 [History] Albuterol Sulfate [Proair Hfa] 2 puff IH Q4H PRN 07/20/18 [History] Levothyroxine [Synthroid] 50 mcg PO 0630 07/20/18 [History] Acetaminophen [Tylenol] 650 mg PO Q6HR PRN tablet 07/23/18 [Rx] [place]-3/Dha/Epa/Fish Oil [Fish Oil 1,000 mg Softgel] 1 each PO BID 07/23/18 [History] Amlodipine Besylate 5 mg PO BID 10/08/18 [History] Buspirone HCl [Buspar] 15 mg PO TID 10/08/18 [History] Calcitriol [Rocaltrol] 0.25 mg PO DAILY 10/08/18 [History] Cyanocobalamin (B-12) [Vitamin B12] 1,000 mcg IM QMONTH 10/08/18 [History] Ezetimibe 10 mg PO HS 10/08/18 [History] LORazepam [Ativan] 0.5 mg PO DAILY PRN 10/08/18 [History] Lisinopril 2.5 mg PO DAILY 10/08/18 [History] Loratadine [Claritin] 10 mg PO DAILY 10/08/18 [History] Metoprolol Tartrate 50 mg PO BID 10/08/18 [History] Nitroglycerin [Nitrostat] 0.4 mg SL PRN PRN 10/08/18 [History] Omeprazole [PriLOSEC] 20 mg PO DAILY 10/08/18 [History] Simvastatin [Zocor] 20 mg PO HS 10/08/18 [History] cloNIDine HCl [CloNIDine HCl] 0.1 mg PO TID 10/08/18 [History] Lisinopril [Zestril] 2.5 mg PO DAILY tablet 10/11/18 [Rx] Nystatin POWDER [Nystop] 1 appl TP TID bottle 10/11/18 [Rx] Oxycodone HCl 5 mg PO Q6-8H PRN 3 Days #15 tablet 10/11/18 [Rx] Allergies/Adverse Reactions: Allergy/AdvReac Type Severity Reaction Status Date / Time Benzoate Analogues Allergy See Verified 10/05/18 21:38 Comments chondroitin sulfate A Allergy See Verified 10/05/18 21:38 [From TripleFlex] Comments Diphenoxylate Allergy See Verified 10/05/18 21:38 Comments glatiramer (copolymer 1) Allergy See Verified 10/05/18 21:38 [From Copaxone] Comments glucosamine [From TripleFlex] Allergy See Verified 10/05/18 21:38 Comments levofloxacin Allergy See Verified 10/05/18 21:38 Comments methylsulfonylmethane Allergy See Verified 10/05/18 21:38 [From TripleFlex] Comments metronidazole Allergy See Verified 10/05/18 21:38 Comments nitrofurantoin Allergy See Verified 10/05/18 21:38 Comments ondansetron Allergy See Verified 10/05/18 21:38 Comments paricalcitol [From Zemplar] Allergy See Verified 10/05/18 21:38 Comments Sulfa (Sulfonamide Allergy Nausea Verified 10/05/18 21:38 Antibiotics) trazodone Allergy See Verified 10/05/18 21:38 Comments acetaminophen [From [place]] AdvReac Vomiting Verified 10/05/18 23:13 cinacalcet [From Sensipar] AdvReac See Verified 10/05/18 21:38 Comments codeine AdvReac Nausea Verified 10/05/18 21:38 hydrocodone [From [place]] AdvReac Vomiting Verified 10/05/18 23:13 NSAIDS (Non-Steroidal AdvReac Gastrointestinal Verified 10/05/18 21:38 Anti-Inflamma Upset Date of admission: 10/08/18 23:20 Primary care physician: PCP NONE Consults: 10/06/18 02:18 Consult to Nutrition [CONS] Routine Comment: Consulting Provider: NUTRITION Reason for Dietary Consult: MST Score 10/06/18 08:22 Consult to Orthopedic Surgery [CONS] Routine Consulting Provider: Morgan Garcia Reason for Consult: Right tibial plateau fracture. Call Completed: Yes 10/06/18 15:36 Consult to Occupational Therapy [CONS] Routine Comment: Evaluate, develop and implement POC Reason for Consult: adl Does patient have active BEDREST order?: No Is patient medically & hemodynamically stable?: Yes Consult to Physical Therapy [CONS] Routine Comment: Evaluate, develop and implement POC Reason for Consult: Tib Fx Does patient have active BEDREST order?: No Is patient medically & hemodynamically stable?: Yes Consult to Fashion Director [employer] Plan [employer] [CONS] Routine Reason for SW Consult: D/C - Constitutional Vitals: Temp Pulse Resp BP Pulse Ox 98.9 F 113 20 156/79 92 10/11/18 08:45 10/11/18 08:45 10/11/18 08:45 10/11/18 08:45 10/11/18 08:45 Exam: GENERAL: Alert, moderate distress, cooperative NECK: No jugulovenous distention, No carotid bruits, Carotid pulse normal contour, Supple LUNGS: Lungs clear to auscultation, Good diaphragmatic excursion CARDIAC: Normal S1 and S2; no rubs, murmurs, or gallops ABDOMEN: Abdomen soft, non-tender, BS normal, No masses or organomegaly EXTREMITIES: Right knee brace in place not taken off due to patient preference. NEURO: Gait not tested. Reflexes normal and symmetric. Diffuse weakness in all 4 extremities which is unchanged from baseline Sensation grossly intact, Cranial nerves II-XII intact PULSES: 2+ radial, 2+ carotid Rest of the exam is non contributory - Patient Status Disposition: Transfer SNF Condition: Fair Functional capacity at discharge: uses cane/walker Overall status at discharge: patient is progressing back to baseline - Discharge Instructions Follow Up With: NONE,PCP [Primary Care Provider] - - Diet and Activity Activity: as per physical therapy (Patient will remain nonweightbearing on the right lower extremity unless cleared by orthopedic's) Diet: advance to your usual diet
--- NOTE | 2018-10-11 10:33 | Physician Discharge Referral ---
ExtendedCare Referral Info Transfer To: SNF/ ECF Provider in Charge after Transfer: PCP - Diagnosis (1) Tibial plateau fracture Priority: Primary Status: Acute (2) Acute renal failure Priority: Secondary Status: Acute (3) Hyponatremia Priority: Secondary Status: Acute (4) Coronary artery disease Priority: Secondary Status: Acute (5) COPD (chronic obstructive pulmonary disease) Priority: Secondary Status: Acute (6) DVT prophylaxis Priority: Secondary Status: Acute - Transfer Medications Prescriptions: Oxycodone HCl 5 mg PO Q6-8H PRN 3 Days #15 tablet PRN Reason: Fracture Home Medications: Aspirin 81 mg PO DAILY 04/23/15 [History] Cholecalciferol (Vitamin D3) [Vitamin D3] 1,000 unit PO DAILY 04/23/15 [History] LORazepam [Ativan] 1 mg PO DAILY 04/23/15 [History] Albuterol Sulfate [Proair Hfa] 2 puff IH Q4H PRN 07/20/18 [History] Levothyroxine [Synthroid] 50 mcg PO 0630 07/20/18 [History] Acetaminophen [Tylenol] 650 mg PO Q6HR PRN tablet 07/23/18 [Rx] [place]-3/Dha/Epa/Fish Oil [Fish Oil 1,000 mg Softgel] 1 each PO BID 07/23/18 [History] Amlodipine Besylate 5 mg PO BID 10/08/18 [History] Buspirone HCl [Buspar] 15 mg PO TID 10/08/18 [History] Calcitriol [Rocaltrol] 0.25 mg PO DAILY 10/08/18 [History] Cyanocobalamin (B-12) [Vitamin B12] 1,000 mcg IM QMONTH 10/08/18 [History] Ezetimibe 10 mg PO HS 10/08/18 [History] LORazepam [Ativan] 0.5 mg PO DAILY PRN 10/08/18 [History] Lisinopril 2.5 mg PO DAILY 10/08/18 [History] Loratadine [Claritin] 10 mg PO DAILY 10/08/18 [History] Metoprolol Tartrate 50 mg PO BID 10/08/18 [History] Nitroglycerin [Nitrostat] 0.4 mg SL PRN PRN 10/08/18 [History] Omeprazole [PriLOSEC] 20 mg PO DAILY 10/08/18 [History] Simvastatin [Zocor] 20 mg PO HS 10/08/18 [History] cloNIDine HCl [CloNIDine HCl] 0.1 mg PO TID 10/08/18 [History] Lisinopril [Zestril] 2.5 mg PO DAILY tablet 10/11/18 [Rx] Nystatin POWDER [Nystop] 1 appl TP TID bottle 10/11/18 [Rx] Oxycodone HCl 5 mg PO Q6-8H PRN 3 Days #15 tablet 10/11/18 [Rx] Allergies/Adverse Reactions: Allergy/AdvReac Type Severity Reaction Status Date / Time Benzoate Analogues Allergy See Verified 10/05/18 21:38 Comments chondroitin sulfate A Allergy See Verified 10/05/18 21:38 [From TripleFlex] Comments Diphenoxylate Allergy See Verified 10/05/18 21:38 Comments glatiramer (copolymer 1) Allergy See Verified 10/05/18 21:38 [From Copaxone] Comments glucosamine [From TripleFlex] Allergy See Verified 10/05/18 21:38 Comments levofloxacin Allergy See Verified 10/05/18 21:38 Comments methylsulfonylmethane Allergy See Verified 10/05/18 21:38 [From TripleFlex] Comments metronidazole Allergy See Verified 10/05/18 21:38 Comments nitrofurantoin Allergy See Verified 10/05/18 21:38 Comments ondansetron Allergy See Verified 10/05/18 21:38 Comments paricalcitol [From Zemplar] Allergy See Verified 10/05/18 21:38 Comments Sulfa (Sulfonamide Allergy Nausea Verified 10/05/18 21:38 Antibiotics) trazodone Allergy See Verified 10/05/18 21:38 Comments acetaminophen [From [place]] AdvReac Vomiting Verified 10/05/18 23:13 cinacalcet [From Sensipar] AdvReac See Verified 10/05/18 21:38 Comments codeine AdvReac Nausea Verified 10/05/18 21:38 hydrocodone [From [place]] AdvReac Vomiting Verified 10/05/18 23:13 NSAIDS (Non-Steroidal AdvReac Gastrointestinal Verified 10/05/18 21:38 Anti-Inflamma Upset - Respiratory Orders Smoking Cessation: Smoking cessation has been advised. For more information, call the [place] Tobacco Quit Line at 9-483-TZET-NOW. CERTIFICATION: I certify that the transfer of the above named patient to an Extended Care Facility is necessary for the continuing treatment of the diagnosis listed. The above information is true and accurate reflection of patient's current condition. Confidential - Redisclosure prohibited without a patient's written consent.
[2018-10-11 12:54] VITALS: BP 104/71
== END 2018-10-11 14:45 | DRG 563 ==
LOC: 3NENU → SUATTDRO 10-06 01:13
PROVIDERS: ADMIT Internal Medicine; ATTEND Internal Medicine

== ENCOUNTER 2021-08-31 16:19 | Inpatient (IN) ==
[2021-09-01] MEDS ORDERED: Naloxone 0.4 MG/ML INJ IVP PRN (00:15)
[2021-09-01] MEDS ORDERED: Dextrose Gel 15 GM/37.5 ML TUBE PO PRN ×2 (00:20)
[2021-09-01] MEDS ORDERED: D5% in Water 1,000 ML IVC PRN (00:20)
[2021-09-01] MEDS ORDERED: *HR* Dextrose 50 % in Water (Syg) 50 ML SYRINGE IVP PRN (00:20)
[2021-09-01 01:17] LABS: Basophils % 0.1 %; Hematocrit 41.3 % (35.3-44.9); Hemoglobin 13.3 g/dL (11.5-15.4); Immature Granulocytes % 0.6 % (0-4); Lymphocytes % 11.7 %; Mean Corpuscular HGB Conc 32.2 g/dL (31.6-35.5); Mean Corpuscular Hemoglobin 28.7 pg (28.0-33.3); Mean Platelet Volume 10.4 fL (9.4-12.4); Monocytes # 0.2 K/mcL (0.0-1.3); Monocytes % 1.8 %; Neutrophils # 7.5 K/mcL (1.6-8.9); Platelet Count 196 K/mcL (140-400); Red Blood Count 4.64 M/mcL (3.82-4.97); Red Cell Distribution Width 14.8 % (11.5-14.5); Segmented Neutrophils % 85.8 %; White Blood Count 8.7 K/mcL (4.3-11.1)
[2021-09-01 01:28] LABS: INR 1.1; Prothrombin Time 11.9 Seconds (9.4-12.1)
[2021-09-01 01:35] LABS: Chol/HDL Ratio 4.1 (0-4.9); Magnesium 1.7 mg/dL (1.6-2.6); Phosphorous 3.4 mg/dL (2.7-4.5)
[2021-09-01] MEDS: Insulin LISPRO 300 UNITS/3 ML VIAL SUBQ SCH ×4 (01:46→17:34)
[2021-09-01 01:55] LABS: Calcium 9.5 mg/dL (8.6-10.3); Potassium 4.2 mEq/L (3.5-5.1)
[2021-09-01 02:09] LABS: Albumin 3.8 g/dL (3.5-5.7); Albumin/Globulin Ratio 1.4 (1.1-2.2); Bilirubin,Indirect 0.5 mg/dL (0.0-1.0); Bilirubin,Total 0.5 mg/dL (0.3-1.0); Globulin 2.8 g/dL (2.4-3.5); Thyroid Stimulating Hormone 0.793 mcIU/mL (0.340-5.600); Total Protein 6.6 g/dL (6.4-8.9); Troponin I 0.41 ng/mL (< 0.04)
[2021-09-01] MEDS ORDERED: Perflutren Lipid Microsphere 1.3 ML in 0.9 % Sodium Chloride 8.7 ML IVP PRN (02:17)
[2021-09-01 02:52] LABS: Estimated Average Glucose 209 mg/dl; Hemoglobin A1C 8.9 %
[2021-09-01] MEDS: Ipratropium/Albuterol Neb 3 ML IH SCH ×4 (03:45→20:04)
[2021-09-01] MEDS ORDERED: *HR* Heparin 5,000 UNIT/ML VIAL IVP PRN ×2 (03:57)
[2021-09-01] MEDS ORDERED: *HR* Heparin 5,000 UNIT/ML VIAL IVP ONE (03:57)
[2021-09-01] MEDS ORDERED: Heparin 25,000 UNIT/250 ML 25,000 UNIT/250 ML IV.SOLN IVC SCH (04:00)
[2021-09-01] MEDS ORDERED: Heparin 25,000UNIT/250ML 1/2NS 25,000 UNIT/250 ML IV.SOLN IVC SCH (04:00)
[2021-09-01 04:59] LABS: Hematocrit 42.2 % (35.3-44.9); Hemoglobin 13.4 g/dL (11.5-15.4); Mean Corpuscular HGB Conc 31.8 g/dL (31.6-35.5); Mean Corpuscular Hemoglobin 28.5 pg (28.0-33.3); Mean Corpuscular Volume 89.8 fL (83.0-100.0); Mean Platelet Volume 10.9 fL (9.4-12.4); Platelet Count 196 K/mcL (140-400); Red Cell Distribution Width 14.6 % (11.5-14.5); White Blood Count 9.4 K/mcL (4.3-11.1)
[2021-09-01 05:32] LABS: Bacteria,Urine Few per hpf (None-Few); Bilirubin,Urine Negative (Negative); Blood,Urine Negative (Negative); Clarity,Urine Clear (Clear); Color,Urine Light-Yellow (Yellow); Glucose,Urine (UA) 500 mg/dL (Normal); Ketones,Urine Negative (Negative); Leukocyte Esterase,Urine Small (Negative); Mucus,Urine Few per lpf (None-Few); Nitrite,Urine Negative (Negative); Protein,Urine 30 mg/dL (Neg-Trace); RBC,Urine 0-3 per hpf (0-3); Specific Gravity,Urine 1.018 (1.010-1.025); Squamous Epithelial Cell,Urine Few per hpf (None-Few); Urobilinogen,Urine Normal (Normal)
[2021-09-01] MEDS: Azithromycin 500 MG in 0.9 % Sodium Chloride 250 ML IVPB SCH (06:39)
[2021-09-01] MEDS: cefTRIAXone 1,000 MG in Water for inj. (sterile) 10 ML IVP SCH (06:39)
[2021-09-01 06:58] LABS: Acinetobacter baumannii by PCR Not Detected (Not Detect); Candida albicans by PCR Not Detected (Not Detect); Candida glabrata by PCR Not Detected (Not Detect); Candida krusei by PCR Not Detected (Not Detect); Candida parapsilosis by PCR Not Detected (Not Detect); Candida tropicalis by PCR Not Detected (Not Detect); Enterobacter cloacae Cmplx PCR Not Detected (Not Detect); Enterobacteriaceae by PCR Not Detected (Not Detect); Enterococcus by PCR Not Detected (Not Detect); Escherichia coli by PCR Not Detected (Not Detect); Klebsiella oxytoca by PCR Not Detected (Not Detect); Klebsiella pneumoniae by PCR Not Detected (Not Detect); Proteus by PCR Not Detected (Not Detect); Pseudomonas aeruginosa by PCR Not Detected (Not Detect); Serratia marcescens by PCR Not Detected (Not Detect); Staphylococcus aureus by PCR Not Detected (Not Detect); Staphylococcus by PCR DETECTED (Not Detect); Streptococcus agalactiae(B)PCR Not Detected (Not Detect); Streptococcus by PCR Not Detected (Not Detect); Streptococcus pneumoniae PCR Not Detected (Not Detect); Streptococcus pyogenes (A) PCR Not Detected (Not Detect); blaKPC Carbapenem-Resist Gene Not Detected (Not Detect); mecA Methicillin-Resist Gene Not Detected (Not Detect); vanA/B Vancomycin-Resist Genes Not Detected (Not Detect)
[2021-09-01] MEDS ORDERED: Insulin DETEMIR 100 UNIT/ML X5UNITS SQ ONE (10:57)
[2021-09-01] MEDS: *HR* LORazepam 1 MG TABLET PO SCH ×3 (11:32→20:23)
[2021-09-01] MEDS: predniSONE 20 MG TABLET PO SCH (11:32)
[2021-09-01] MEDS: *HR* OxyCODONE/APAP 5/325 TABLET PO PRN ×2 (11:32→22:18)
[2021-09-01] MEDS: Aspirin 81 MG TAB.CHEW PO SCH (11:32)
[2021-09-01] MEDS: Metoprolol XL (24 HR) Succ 25 MG TAB.ER.24H PO SCH (11:32)
[2021-09-01] MEDS: Furosemide 40 MG/4 ML VIAL IVP SCH ×2 (11:33→17:34)
[2021-09-01] MEDS: Insulin DETEMIR 100 UNIT/ML X5UNITS SUBQ SCH ×2 (15:02→20:24)
[2021-09-01] MEDS: cloNIDine HCL 0.1 MG TABLET PO SCH ×2 (15:03→20:24)
[2021-09-01] MEDS: Mirtazapine 15 MG TABLET PO SCH (20:24)
[2021-09-02 00:32] LABS: Basophils % 0.1 %; Hematocrit 42.5 % (35.3-44.9); Hemoglobin 13.6 g/dL (11.5-15.4); Immature Granulocytes % 0.5 % (0-4); Lymphocytes # 1.3 K/mcL (0.6-4.6); Lymphocytes % 11.5 %; Mean Corpuscular Hemoglobin 28.8 pg (28.0-33.3); Mean Platelet Volume 10.8 fL (9.4-12.4); Monocytes % 8.9 %; Neutrophils # 8.6 K/mcL (1.6-8.9); Platelet Count 206 K/mcL (140-400); Red Blood Count 4.72 M/mcL (3.82-4.97); Red Cell Distribution Width 14.8 % (11.5-14.5); White Blood Count 10.9 K/mcL (4.3-11.1)
[2021-09-02 00:50] LABS: Calcium 9.6 mg/dL (8.6-10.3); Potassium 4.2 mEq/L (3.5-5.1)
[2021-09-02] MEDS: Ipratropium/Albuterol Neb 3 ML IH SCH ×3 (03:18→16:09)
[2021-09-02] MEDS: Heparin 25,000UNIT/250ML 1/2NS 25,000 UNIT/250 ML IV.SOLN IVC SCH (03:44)
[2021-09-02] MEDS: Azithromycin 500 MG in 0.9 % Sodium Chloride 250 ML IVPB SCH (06:54)
[2021-09-02] MEDS: Loratadine 10 MG TABLET PO SCH (08:17)
[2021-09-02] MEDS: *HR* OxyCODONE/APAP 5/325 TABLET PO PRN ×2 (08:17→19:36)
[2021-09-02] MEDS: *HR* LORazepam 1 MG TABLET PO SCH ×3 (08:17→23:48)
[2021-09-02] MEDS: Metoprolol XL (24 HR) Succ 25 MG TAB.ER.24H PO SCH ×2 (08:17→21:45)
[2021-09-02] MEDS: Furosemide 40 MG/4 ML VIAL IVP SCH (08:17)
[2021-09-02] MEDS: Aspirin 81 MG TAB.CHEW PO SCH (08:17)
[2021-09-02] MEDS: cloNIDine HCL 0.1 MG TABLET PO SCH (08:17)
[2021-09-02] MEDS: predniSONE 20 MG TABLET PO SCH (08:17)
[2021-09-02] MEDS: cefTRIAXone 1,000 MG in Water for inj. (sterile) 10 ML IVP SCH (08:18)
[2021-09-02] MEDS: Insulin LISPRO 300 UNITS/3 ML VIAL SUBQ SCH ×3 (08:18→19:20)
[2021-09-02] MEDS: Insulin DETEMIR 100 UNIT/ML X5UNITS SUBQ SCH ×2 (08:20→23:10)
[2021-09-02] MEDS: Isosorbide MONOnitrate (24 HR) 30 MG TAB.ER.24H PO SCH (13:33)
[2021-09-02] MEDS ORDERED: Ipratropium/Albuterol Neb 3 ML IH PRN (16:09)
[2021-09-02] MEDS: Mirtazapine 15 MG TABLET PO SCH (21:46)
[2021-09-03 00:49] LABS: Basophils % 0.2 %; Hemoglobin 13.1 g/dL (11.5-15.4); Immature Granulocytes % 0.7 % (0-4); Lymphocytes # 1.5 K/mcL (0.6-4.6); Mean Corpuscular HGB Conc 30.5 g/dL (31.6-35.5); Mean Corpuscular Hemoglobin 28.4 pg (28.0-33.3); Mean Corpuscular Volume 93.1 fL (83.0-100.0); Mean Platelet Volume 10.4 fL (9.4-12.4); Monocytes # 0.8 K/mcL (0.0-1.3); Monocytes % 8.4 %; Neutrophils # 6.6 K/mcL (1.6-8.9); Platelet Count 179 K/mcL (140-400); Red Blood Count 4.62 M/mcL (3.82-4.97); Segmented Neutrophils % 73.7 %
[2021-09-03 00:57] LABS: Calcium 9.5 mg/dL (8.6-10.3); Potassium 4.4 mEq/L (3.5-5.1)
[2021-09-03] MEDS: Heparin 25,000UNIT/250ML 1/2NS 25,000 UNIT/250 ML IV.SOLN IVC SCH (00:57)
[2021-09-03] MEDS: Azithromycin 500 MG in 0.9 % Sodium Chloride 250 ML IVPB SCH (05:37)
[2021-09-03] MEDS: *HR* OxyCODONE/APAP 5/325 TABLET PO PRN ×2 (08:21→18:19)
[2021-09-03] MEDS: predniSONE 20 MG TABLET PO SCH (08:21)
[2021-09-03] MEDS: Loratadine 10 MG TABLET PO SCH (08:21)
[2021-09-03] MEDS: *HR* LORazepam 1 MG TABLET PO SCH ×3 (08:21→20:49)
[2021-09-03] MEDS: Isosorbide MONOnitrate (24 HR) 30 MG TAB.ER.24H PO SCH (08:21)
[2021-09-03] MEDS: Aspirin 81 MG TAB.CHEW PO SCH (08:21)
[2021-09-03] MEDS: Insulin LISPRO 300 UNITS/3 ML VIAL SUBQ SCH ×3 (08:22→18:13)
[2021-09-03] MEDS: Metoprolol XL (24 HR) Succ 25 MG TAB.ER.24H PO SCH ×2 (08:22→20:49)
[2021-09-03] MEDS: cefTRIAXone 1,000 MG in Water for inj. (sterile) 10 ML IVP SCH (08:22)
[2021-09-03] MEDS: Insulin DETEMIR 100 UNIT/ML X5UNITS SUBQ SCH ×2 (08:25→20:53)
[2021-09-03] MEDS ORDERED: *HR* FentaNYL (PF) 100 MCG/2 ML VIAL ONE (10:49)
[2021-09-03] MEDS ORDERED: Heparin 1,000 UNITS/500 mL 500 ML ONE (10:50)
[2021-09-03] MEDS ORDERED: Nitroglycerin 1,000 MCG/5 ML VIAL IV ONE (10:50)
[2021-09-03] MEDS ORDERED: ISOVUE-370 200 ML INFUS..BTL ONE (10:50)
[2021-09-03] MEDS ORDERED: 0.9 % Sodium Chloride 2,000 ML ONE (10:50)
[2021-09-03] MEDS ORDERED: *HR* Heparin 10,000 UNIT/10 ML VIAL ONE (10:50)
[2021-09-03] MEDS ORDERED: *HR* Midazolam HCl 2 MG/2 ML VIAL ONE (10:50)
[2021-09-03 11:38] LABS: Adenovirus Not Detected (Not Detect); Bordetella Pertussis Not Detected (Not Detect); Chlamydophila pneumoniae Not Detected (Not Detect); Coronavirus 229E Not Detected (Not Detect); Coronavirus HKU1 Not Detected (Not Detect); Coronavirus NL63 Not Detected (Not Detect); Coronavirus OC43 Not Detected (Not Detect); Human Metapneumovirus Not Detected (Not Detect); Human Rhinovirus/Enterovirus Not Detected (Not Detect); Influenza A Subtype 2009 H1 Not Detected (Not Detect); Influenza B Not Detected (Not Detect); Mycoplasma pneumoniae Not Detected (Not Detect); Parainfluenza Virus 1 Not Detected (Not Detect); Parainfluenza Virus 2 Not Detected (Not Detect); Parainfluenza Virus 3 Not Detected (Not Detect); Parainfluenza Virus 4 Not Detected (Not Detect); Respiratory Syncytial Virus Not Detected (Not Detect); SARS-CoV-2 Not Detected (Not Detect)
[2021-09-03] MEDS ORDERED: 0.9 % Sodium Chloride 1,000 ML IVC SCH (14:00)
[2021-09-03] MEDS: Mirtazapine 15 MG TABLET PO SCH (20:50)
[2021-09-04] MEDS: *HR* OxyCODONE/APAP 5/325 TABLET PO PRN ×3 (00:43→18:46)
[2021-09-04 07:43] VITALS: TEMP 98
[2021-09-04] MEDS: Insulin LISPRO 300 UNITS/3 ML VIAL SUBQ SCH ×2 (08:20→12:39)
[2021-09-04] MEDS: predniSONE 20 MG TABLET PO SCH (08:21)
[2021-09-04] MEDS: Aspirin 81 MG TAB.CHEW PO SCH (08:21)
[2021-09-04] MEDS: Metoprolol XL (24 HR) Succ 25 MG TAB.ER.24H PO SCH (08:21)
[2021-09-04] MEDS: *HR* LORazepam 1 MG TABLET PO SCH ×2 (08:21→15:33)
[2021-09-04] MEDS: Isosorbide MONOnitrate (24 HR) 30 MG TAB.ER.24H PO SCH (08:21)
[2021-09-04] MEDS: Loratadine 10 MG TABLET PO SCH (08:21)
[2021-09-04] MEDS: cefTRIAXone 1,000 MG in Water for inj. (sterile) 10 ML IVP SCH (08:22)
[2021-09-04] MEDS: Insulin DETEMIR 100 UNIT/ML X5UNITS SUBQ SCH (08:30)
[2021-09-04] MEDS ORDERED: Azithromycin 250 MG TABLET PO SCH (09:00)
[2021-09-04 10:38] LABS: Basophils % 0.3 %; Eosinophils # 0.1 K/mcL (0.0-0.6); Eosinophils % 0.7 %; Hematocrit 42.8 % (35.3-44.9); Hemoglobin 13.2 g/dL (11.5-15.4); Immature Granulocytes % 0.9 % (0-4); Lymphocytes % 31.4 %; Mean Corpuscular HGB Conc 30.8 g/dL (31.6-35.5); Mean Corpuscular Hemoglobin 28.8 pg (28.0-33.3); Mean Corpuscular Volume 93.2 fL (83.0-100.0); Mean Platelet Volume 10.3 fL (9.4-12.4); Monocytes # 0.8 K/mcL (0.0-1.3); Monocytes % 8.6 %; Neutrophils # 5.6 K/mcL (1.6-8.9); Platelet Count 202 K/mcL (140-400); Red Blood Count 4.59 M/mcL (3.82-4.97); Red Cell Distribution Width 15.1 % (11.5-14.5); Segmented Neutrophils % 58.1 %; White Blood Count 9.6 K/mcL (4.3-11.1)
[2021-09-04 10:58] LABS: Potassium 4.5 mEq/L (3.5-5.1)
[2021-09-04 11:19] VITALS: BP 135/60; PULSE 94
[2021-09-04 13:49] VITALS: O2SAT 95
[2021-09-04] MEDS ORDERED: FLU Vac QV 21-22 (6Month+)/PF 0.5 ML SYRINGE IM ONE (14:58)
[2021-09-04] MEDS ORDERED: Moderna Covid-19 Vaccine 100MCG/0.5mL IM ONE (15:30)
== END 2021-09-04 19:30 | disposition home health service (06) | DRG 280 ==
LOC: 3NENU → SUATTDRO 23:39
PROVIDERS: ADMIT Internal Medicine; ATTEND Student in an Organized Health Care Education/Training Program